=== PATIENT | male | born 1955 | race Caucasian/White ===

== ENCOUNTER 2017-04-10 19:25 | Day surgery (SDC) | payer SELFPAY ==
--- NOTE | 2017-04-10 19:49 | EDM.PDOC ---
ED HPI GENERAL MEDICAL PROBLEM - General Chief Complaint: ENT Problem Stated Complaint: FOOD STUCK IN HIS THROAT Time Seen by Provider: 04/10/17 19:30 Source of Information: Reports: Patient, Family History Limitations: Reports: No Limitations - History of Present Illness INITIAL COMMENTS - FREE TEXT/NARRATIVE: At 9 pm yesterday evening, Mukund bit into a hot dog and attempted to swallow a piece estimated to be about an inch long when this apparently became lodged in the upper esophagus by sensation of pressure, inability to swallow saliva, and a similar experience about 25 years ago. There is no hoarseness, cough, wheezing , or SOB. There is no PMH of esophageal stricture, GERD, or prior surgery. - Related Data Allergies Allergy/AdvReac Type Severity Reaction Status Date / Time No Known Allergies Allergy Verified 04/10/17 21:16 Home Meds: Home Meds Omeprazole Magnesium [Prilosec Otc] 20 mg PO DAILY #30 tablet. 04/10/17 [Rx] Sucralfate [Carafate] 1 gm PO ACBED #28 tab 04/10/17 [Rx] ED ROS GENERAL - Review of Systems Review Of Systems: ROS reveals no pertinent complaints other than HPI. ED EXAM, GI/ABD - Physical Exam Exam: See Below Exam Limited By: No Limitations General Appearance: Alert, WD/WN, Anxious, Mild Distress Eyes: Bilateral: Normal Appearance, EOMI Ears: Normal External Exam Nose: Normal Inspection Throat/Mouth: Normal Inspection, Normal Lips, Normal Oropharynx, Normal Voice, No Airway Compromise, Dysphagia Head: Normocephalic Neck: Normal Inspection, Supple, Non-Tender Respiratory/Chest: No Respiratory Distress, Lungs Clear, Normal Breath Sounds, No Accessory Muscle Use, Chest Non-Tender Cardiovascular: Normal Peripheral Pulses, Regular Rate, Rhythm, No Edema, No Murmur GI/Abdominal: Normal Bowel Sounds, Soft, Non-Tender, No Organomegaly, No Distention, No Mass Back Exam: Normal Inspection Extremities: Normal Inspection Neurological: Alert, Oriented, CN II-XII Intact, No Motor/Sensory Deficits Psychiatric: Normal Affect, Anxious Skin Exam: Warm, Dry Lymphatic: No Adenopathy Course - Vital Signs Text/Narrative:: Following assession at the [facility] ED, a 2 view chest x ray was obtained but did not definitively identify the food bolus. Glucagon 1 mg IV was administered without benefit. Case was discussed with Dr Khan regarding further management, and he will consult and perform an endoscopy and potential removal of food fb. Last Recorded V/S: Last Vital Signs Temp 37.3 C 04/10/17 19:36 Pulse 79 04/10/17 19:36 Resp 16 04/10/17 19:36 BP 154/87 H 04/10/17 20:53 Pulse Ox 94 L 04/10/17 19:36 - Orders/Labs/Meds Orders: Active Orders 24 hr Category Date Time Status Patient to Empty Bladder [RC] ASDIRECTED Care 04/10/17 21:13 Active Verify Patient Consent Obtain [RC] ASDIRECTED Care 04/10/17 21:13 Active Nothing Per Oral Diet [DIET] Diet 04/10/17 Dinner Ordered CXR [Chest 2V] [CR] Stat Exams 04/10/17 19:44 Taken Lactated Ringers [Ringers, Lactated] 1,000 ml Med 04/10/17 21:15 Active IV ASDIRECTED Pantoprazole [ProTONIX IV] Med 04/10/17 21:53 Once 40 mg IVPUSH ONETIME ONE Sodium Chloride 0.9% [Saline Flush] Med 04/10/17 19:56 Active 10 ml FLUSH ASDIRECTED PRN Saline Lock Insert [OM.PC] Routine Oth 04/10/17 19:56 Ordered Resuscitation Status Routine Resus Stat 04/10/17 21:13 Ordered Medication Orders Lactated Ringer's (Ringers, Lactated) 1,000 mls @ 125 mls/hr IV ASDIRECTED ISAAC Pantoprazole Sodium (Protonix Iv) 40 mg IVPUSH ONETIME ONE Stop: 04/10/17 21:54 Sodium Chloride (Saline Flush) 10 ml FLUSH ASDIRECTED PRN PRN Reason: Keep Vein Open Last Admin: 04/10/17 20:04 Dose: 10 ml Meds: Medications Generic Name Dose Route Start Last Admin Trade Name Freq PRN Reason Stop Dose Admin Lactated Ringer's 1,000 mls @ 125 mls/hr 04/10/17 21:15 Ringers, Lactated IV ASDIRECTED ISAAC Pantoprazole Sodium 40 mg 04/10/17 21:53 Protonix Iv IVPUSH 04/10/17 21:54 ONETIME ONE Sodium Chloride 10 ml 04/10/17 19:56 04/10/17 20:04 Saline Flush FLUSH 10 ml ASDIRECTED PRN Administration Keep Vein Open Discontinued Medications Generic Name Dose Route Start Last Admin Trade Name Beverly PRN Reason Stop Dose Admin Glucagon 1 mg 04/10/17 19:56 04/10/17 20:06 Glucagen IVPUSH 04/10/17 19:57 1 mg ONETIME ONE Administration Departure - Departure Time of Disposition: 21:00 Disposition: Refer to Observation Condition: Fair Clinical Impression: Food impaction of esophagus Qualifiers: Encounter type: initial encounter Qualified Code(s): T18.128A - Food in esophagus causing other injury, initial encounter - Discharge Information - Problem List & Annotations (1) Food impaction of esophagus SNOMED Code(s): 9320668, 71424713 Code(s): T18.128A - FOOD IN ESOPHAGUS CAUSING OTHER INJURY, INITIAL ENCOUNTER Status: Acute Current Visit: Yes Qualifiers: Encounter type: initial encounter Qualified Code(s): T18.128A - Food in esophagus causing other injury, initial encounter - Problem List Review Problem List Initiated/Reviewed/Updated: Yes - My Orders Last 24 Hours: My Active Orders 04/10/17 19:44 CXR [Chest 2V] [CR] Stat 04/10/17 19:56 Sodium Chloride 0.9% [Saline Flush] 10 ml FLUSH ASDIRECTED PRN Saline Lock Insert [OM.PC] Routine - Assessment/Plan Last 24 Hours: My Active Orders 04/10/17 19:44 CXR [Chest 2V] [CR] Stat 04/10/17 19:56 Sodium Chloride 0.9% [Saline Flush] 10 ml FLUSH ASDIRECTED PRN Saline Lock Insert [OM.PC] Routine Plan: Consult with Dr Khan regarding endoscopy.
[2017-04-10] MEDS ORDERED: Sodium Chloride 0.9% 10 ML Syringe FLUSH PRN (19:56)
[2017-04-10] MEDS ORDERED: Glucagon,Human Recombinant 1 MG Vial IVPUSH ONE (19:56)
--- NOTE | 2017-04-10 21:13 | PCM.HP ---
H&P History of Present Illness - General Date of Service: 04/10/17 History Limitations: Reports: No Limitations - History of Present Illness Initial Comments - Free Text/Narative: 61 yo wm who ate a hot dog last pm. Apparently had issues with swallowing since then. This has persisted during the day. He has not responded to glucagon and has brought up anything he has drank. No hx of Gerd. - Related Data Allergies/Adverse Reactions: Allergies Allergy/AdvReac Type Severity Reaction Status Date / Time No Known Allergies Allergy Verified 04/10/17 19:35 Home Medications: Home Meds NK [No Known Home Meds] 04/10/17 [History] Past Medical History HEENT History: Reports: Hard of Hearing, Other (See Below) Other HEENT History: pt has bilateral hearing aids in Gastrointestinal History: Reports: Other (See Below) Other Gastrointestinal History: 20/25 years ago had food stuck in throat - Infectious Disease History Infectious Disease History: Reports: Chicken Pox, Mumps, Shingles Social & Family History - Tobacco Use Smoking Status *Q: Never Smoker Second Hand Smoke Exposure: No - Caffeine Use Caffeine Use: Reports: None - Recreational Drug Use Recreational Drug Use: No H&P Review of Systems - Review of Systems: Review Of Systems: See Below General: Reports: No Symptoms HEENT: Reports: Dysphasia. Denies: Sore Throat Pulmonary: Reports: No Symptoms Cardiovascular: Reports: No Symptoms Gastrointestinal: Reports: No Symptoms Genitourinary: Reports: No Symptoms Musculoskeletal: Reports: No Symptoms Neurological: Reports: No Symptoms Exam - Exam Exam: See Below - Vital Signs Vital Signs: Last Vital Signs Temp 37.3 C 04/10/17 19:36 Pulse 79 04/10/17 19:36 Resp 16 04/10/17 19:36 BP 145/90 H 04/10/17 19:36 Pulse Ox 94 L 04/10/17 19:36 Weight: 99.79 kg - Exam General: Alert, Oriented, Cooperative. No: Mild Distress HEENT: PERRLA, Conjunctiva Clear, EOMI, Pupils Equal, Pupils Reactive. No: Hearing Intact Neck: Supple, Trachea Midline Lungs: Clear to Auscultation, Normal Respiratory Effort Cardiovascular: Regular Rate, Regular Rhythm Abdomen: Normal Bowel Sounds, Soft *Q Meaningful Use (ADM) - VTE *Q VTE Criteria *Q: - Stroke *Q Stroke Criteria *Q: - AMI *Q AMI Criteria *Q: - Problem List (1) Food impaction of esophagus SNOMED Code(s): 6422207, 63574801 ICD Code: T18.128A - FOOD IN ESOPHAGUS CAUSING OTHER INJURY, INITIAL ENCOUNTER Status: Acute Current Visit: Yes Problem List Initiated/Reviewed/Updated: Yes Orders Last 24hrs: Active Orders 24 hr Category Date Time Status CXR [Chest 2V] [CR] Stat Exams 04/10/17 19:44 Taken Sodium Chloride 0.9% [Saline Flush] Med 04/10/17 19:56 Active 10 ml FLUSH ASDIRECTED PRN Saline Lock Insert [OM.PC] Routine Oth 04/10/17 19:56 Ordered Medication Orders Sodium Chloride (Saline Flush) 10 ml FLUSH ASDIRECTED PRN PRN Reason: Keep Vein Open Last Admin: 04/10/17 20:04 Dose: 10 ml Assessment/Plan Comment:: Plan egd. procedure and risks explained to the pt to include bleeding infection perforation. He asks us to proceed.
[2017-04-10] MEDS ORDERED: Lactated Ringers 1,000 ML IV SCH (21:15)
[2017-04-10] MEDS ORDERED: Lidocaine 2% 100 MG/5 ML Syringe IVPUSH ONE (21:20)
[2017-04-10] MEDS ORDERED: Lactated Ringers 1,000 ML IV ONE (21:20)
[2017-04-10] MEDS ORDERED: Propofol 200 MG/20 ML SDV IV ONE (21:20)
[2017-04-10] MEDS ORDERED: Midazolam 1 MG/ML 2 ML SDV IV ONE (21:20)
--- NOTE | 2017-04-10 21:51 | PCM.OPNOTE ---
- General Post-Op/Procedure Note Date of Surgery/Procedure: 04/10/17 Operative Procedure(s): egd with removal of impacted food. Findings: food impaction gastroduodenitis Pre Op Diagnosis: food impaction Post-Op Diagnosis: food impaction. gastroduodenitis Anest[place] [facility] [place]geon: Bryan Stevenson Anesthesia Provider: Corine Abreu Pathology: none Complications: None Condition: Fair Free Text/Narrative:: see dictation
[2017-04-10] MEDS ORDERED: Pantoprazole 40 MG Vial IVPUSH ONE (23:30)
--- NOTE | 2017-04-11 01:16 | OR ---
DATE OF OPERATION: 04/10/2017 SURGEON: Bryan Stevenson MD PROCEDURE PERFORMED: EGD with removal of food impaction. PREOPERATIVE DIAGNOSIS: Food impaction distal esophagus. POSTOPERATIVE DIAGNOSIS: Food impaction distal esophagus. INDICATIONS FOR PROCEDURE: This is a 61-year-old white male, who apparently was eating a hot dog yesterday, did not chew it properly and felt like he had food impacted in his esophagus. He has had issue containing secretions since then from the past 24 hours and he was offered and accepted an EGD. DESCRIPTION OF OPERATION: After an excellent IV sedation was administered, the bite block as well as additional teeth protections were inserted and flexible endoscope was passed without difficulty down the patient's esophagus. At the distal esophagus, there was an approximately 2-3 inch piece of hot dog. This was removed in 2 pieces by using a Lou net. After removing the hot dog, the scope was reinserted and the stomach and duodenum was inspected. He was noted to have some gastroduodenitis. No biopsies were taken. There was no overt stricture noted in the patient's esophagus. The remainder of the esophageal exam was essentially unremarkable except for some irritation in the distal esophagus. The patient was taken to recovery in good condition. /[id number] ZANDRA/JAVIER
[2017-04-11 09:22] VITALS: BP 134/86
== END 2017-04-10 23:07 ==
LOC: FB.ED 19:25 → FB.SDS 20:57 → FB.MS 21:58 → FB.SDS 23:07
PROVIDERS: ATTEND Surgery
DX: T18.128A Food in esophagus causing other injury, initial encounter (principal); Z79.899 Other long term (current) drug therapy
CPT/HCPCS: 00740; 43247; 71020; 96374; 99284; J1610; J2250; J2704; J7050; J7120